=== PATIENT | female | born 1955 | race Caucasian/White ===

== ENCOUNTER → 2021-02-20 | Day surgery (SDC) | payer MEDICARE, OTHER ==
[~2021-02-20] MED LIST: ACETAMINOPHEN500 M1 PO; AMBIEN5 MG PO; AMOXICILLIN500 M2 PO; ANASTROZOLE1 M1 PO; ANASTROZOLE1 MG PO; ATIVAN1 MG PO; AUGMENTIN 875-1 EACH PO; BACITRACIN15 GM TOP; COLESTID 1GM TAB1 GM PO; DIFLUCAN150 MG PO; DITROPAN5 MG PO; EFFEXOR XR 3737.5 MG PO; EFFEXOR-XR 75 M75 MG PO; HCTZ25 MG PO; HEPARIN 3010 UNIT/1 IV; HYDRALAZINE25 MG PO; IMITREX50 M1 PO; IMODIUM2 MG PO; ISOSORBIDE DINI10 MG PO; K-DUR20 MEQ PO; LANTUS **100 UNITS/ SC; LISPRO; LISPRO SC; LOMOTIL1 EACH PO; LORAZEPAM1 MG PO; LOVASTATIN20 MG PO; MACROBID100 MG PO; MAGNESIUM400 MG PO; MELOXICAM7.5 MG PO; MEROPENEM500 MG IV; METOPROLOL SUCC50 MG PO; METRONIDAZOLE500 MG PO; MIRALAX 238GM238 GM PO; MOBIC7.5 M1 PO; MOBIC7.5 MG PO; NEURONTIN300 MG PO; NORCO 5-325 TA1 EACH PO; NORVASC5 MG PO; ONDANSETRON ODT8 MG SL; PATIENT'S OWN MED SL; PERCOCET 10-321 EACH PO; POTASSIUM CHLO10 ME1 PO; POTASSIUM CHLORIDE PO; REMERON30 MG PO; RENAGEL800 MG PO; ROCALTROL 0.0.25 MCG PO; SENNA PLUS TAB1 EACH PO; VENLAFAXINE H37.5 M1 PO; VENLAFAXINE HCL75 M1 PO; VITAMIN D35000 UNI2 PO; VITAMIN D35000 UNIT PO; ZANTAC150 MG PO; ZOFRAN4 M1 PO; ZOFRAN4 MG PO; ZOFRAN4 MG SL; ZOLOFT25 MG PO; ZOLPIDEM TARTRAT5 MG PO; [UNRECOGNIZED DRUG - SUPPLY] XX
== END | disposition home or self-care (01) ==
LOC: FAS 07:09
DX: K64.4 Residual hemorrhoidal skin tags (principal); K64.8 Other hemorrhoids; M19.90 Unspecified osteoarthritis, unspecified site; F41.8 Other specified anxiety disorders; I87.2 Venous insufficiency (chronic) (peripheral); I10 Essential (primary) hypertension; E78.00 Pure hypercholesterolemia, unspecified; G43.909 Migraine, unspecified, not intractable, without status migrainosus; C50.919 Malignant neoplasm of unspecified site of unspecified female breast; K91.2 Postsurgical malabsorption, not elsewhere classified; K43.2 Incisional hernia without obstruction or gangrene; E86.0 Dehydration; Z90.49 Acquired absence of other specified parts of digestive tract; Z20.822 Contact with and (suspected) exposure to COVID-19; Z96.659 Presence of unspecified artificial knee joint; Z80.0 Family history of malignant neoplasm of digestive organs; Z79.899 Other long term (current) drug therapy; R73.09 Other abnormal glucose
CPT/HCPCS: 93005; J0694; J2250; J2704; J3010; J7120